=== PATIENT | male | born 1965 | race Caucasian/White ===

== ENCOUNTER → 2018-02-27 16:11 | Outpatient (CLI) | payer BC, SELFPAY ==
--- NOTE | 2018-02-27 16:17 | RAD_ITS ---
STUDY: X-RAY CHEST REASON FOR EXAM: Male, 53 years old. Cough TECHNIQUE: Frontal and lateral views of the chest COMPARISON: None. FINDINGS: The lungs are clear. There are no pleural effusions. There is no pneumothorax. The heart is normal in size. The visualized osseous structures are within normal limits. RAD/Chest PA and Lateral IMPRESSION: No acute thoracic pathology. Electronically Signed: Дмитрий Matthews, at 16:27 EDT Tel , Service support ,
== END ==
PROVIDERS: Family Provider Nurse Practitioner; PCP Nurse Practitioner; Visit Provider Nurse Practitioner
DX: F17.200 Nicotine dependence, unspecified, uncomplicated (principal)
CPT/HCPCS: 71046

== ENCOUNTER → 2018-03-05 07:39 | Outpatient (CLI) | payer BC, SELFPAY ==
--- NOTE | 2018-03-05 07:41 | US_ITS ---
STUDY: ABDOMINAL ULTRASOUND REASON FOR EXAM: Male, 53 years old. Elevated LFTs. TECHNIQUE: Transabdominal ultrasound was performed with real-time and static cramer scale imaging. TECHNICAL QUALITY: Adequate. COMPARISON: None. FINDINGS: Liver: The liver measures 15.2 cm. There is normal echogenicity of the liver. The bile ducts are within normal limits. There is hepatic color flow. The direction of portal flow is hepatopetal. There is no demonstrated mass lesion. Gallbladder: Normal distended gallbladder. The gallbladder wall measures 3 mm. There is a negative sonographic Ordaz's sign. There is no pericholecystic fluid. There is biliary sludge dependent within the gallbladder. Common Bile Duct (C.B.D.): The common bile duct measures 3.3 mm. Pancreas: There is nonvisualization of the pancreas. Spleen: Normal size of the spleen. The spleen measures 10.9 x 4.4 x 5.1 cm. Right Kidney: Normal size of the right kidney. The right kidney measures 12.1 x 4.8 x 4.9 cm. Normal renal cortex. The right cortex measures 1.4 cm. There is no demonstrated renal mass or cyst. There is no right hydronephrosis. Left Kidney: Normal size of the left kidney. The left kidney measures 11.5 x 5.2 x 5.3 cm. Normal renal cortex. The left cortex measures 1.5 cm. There is no demonstrated renal mass or cyst. There is no left hydronephrosis. Aorta: The abdominal aorta measures 1.9 cm in diameter proximally, 2.3 cm in the mid abdominal region, and 2.3 cm distally. The aortic bifurcation was not visualized. I.V.C.: The IVC is patent. There is no ascites. US/Abdomen Complete IMPRESSION: Sludge is present within the gallbladder. The pancreas and aortic bifurcation are not visualized. The remainder of the study is unremarkable. Electronically Signed: Roger Pierce MD at 17:03 EDT , Service support ,
== END ==
PROVIDERS: Family Provider Nurse Practitioner; PCP Nurse Practitioner; Visit Provider Nurse Practitioner
DX: R74.8 Abnormal levels of other serum enzymes (principal); F17.200 Nicotine dependence, unspecified, uncomplicated
CPT/HCPCS: 76700